=== PATIENT | male | born 1935 | race Caucasian/White ===

== ENCOUNTER 2016-11-01 06:42 | Inpatient (IN) | payer OTHER ==
[2016-11-01 07:04] VITALS: BMI 31.4
[2016-11-01] MEDS ORDERED: SODIUM CHLORIDE 0.9% 1000 ML INFUS.BAG IV PRN (07:17)
[2016-11-01] MEDS ORDERED: ACETAMINOPHEN 325 MG TABLET (FP) ONE (08:03)
[2016-11-01] MEDS ORDERED: ACETAMINOPHEN 500 MG TABLET (FP) PO ONE (08:04)
--- NOTE | 2016-11-01 08:04 | PDOC ---
History of Present Illness - General Chief Complaint: Respiratory Stated Complaint: DIFFICULTY BREATHING Time Seen by Provider: 11/01/16 07:15 - History of Present Illness Initial Comments: 11/01/16 07:57 CHIEF COMPLAINT: SOB HISTORY OF PRESENT ILLNESS: 81 yo M with hx of HTN, NIDDM, s/p 2 cardiac stents (on Plavix) and cholecystectomy, presents to ED with cough, SOB, and fever x 3 days. Patient's daughter is at bedside and states Tmax was yesterday at 101.6F. Daughter reports that patient was seen at [facility] two days ago and sent home with Claritin and Tylenol for ever. Patient has been taking 1000 mg Tylenol 3 times daily for fever. Daughter also reports that patient has had LLQ pain x 3 months as well as "blood in the urine twice" and has seen "three doctors who said everything is ok, but after I insisted he is scheduled to have an ultrasound on the ." No recent travel or sick contacts. PAST MEDICAL HISTORY: Denies past medical history FAMILY HISTORY: Denies SOCIAL HISTORY: Lives at home with daughter. Denies tobacco, alcohol, illicit drug use. SURGICAL HISTORY: Denies ALLERGIES: No known drug allergies REVIEW OF SYSTEMS General/Constitutional: Fever x 3 days. Denies weakness, weight change. HEENT: Denies change in vision. Denies ear pain or discharge. Denies sore throat. Cardiovascular: Denies chest pain or shortness of breath. Respiratory: Productive cough with yellow phlegm x 3 days. Denies wheezing, or hemoptysis. Gastrointestinal: Pain to left lower quadrant x 3 months. Denies nausea, vomiting, diarrhea or constipation. Denies rectal bleeding. Genitourinary: Denies dysuria, frequency, or change in urination. Musculoskeletal: Denies joint or muscle swelling or pain. Denies neck or back pain. Skin and breasts: Denies rash or easy bruising. Neurologic: Denies headache, vertigo, loss of consciousness, or loss of sensation. PHYSICAL EXAM General Appearance: Well-appearing, appropriately dressed. No apparent distress. HEENT: EOMI, PERRLA, normal ENT inspection, normal voice, TMs normal, pharynx normal. No conjunctival pallor. No photophobia, scleral icterus. Neck: Supple. Trachea midline. No tenderness, rigidity, carotid bruit, stridor , lymphadenopathy, or thyromegaly. Respiratory/Chest: Decreased lung sounds to left lower lobe with scattered crackles. No chest tenderness, respiratory distress, accessory muscle use. No rales, stridor. Cardiovascular: RRR. S1, S2. No JVD, murmur, bradycardia, tachycardia. Vascular Pulses: Dorsalis-Pedis (R): 2+, Dorsalis-Pedis (L): 2+ Gastrointestinal/Abdominal: Tenderness to LLQ. Normal bowel sounds. Abdomen soft, non-distended. No organomegaly, pulsatile mass, guarding, hernia, hepatomegaly, splenomegaly. Musculoskeletal/Extremities: Left CVA tenderness. Normal inspection. FROM of all extremities, normal capillary refill. Pelvis Stable. No tenderness to extremities, pedal edema, swelling, erythema or deformity. Integumentary: Appropriate color, dry, warm. No cyanosis, erythema, jaundice or rash Neurologic: intervention manager II-XII intact. Fully oriented, alert. Appropriate mood/affect. Motor strength 5/5. No appreciable EOM palsy, facial droop or sensory deficit. 11/01/16 09:35 Past History - Past Medical History Allergies/Adverse Reactions: Allergies Allergy/AdvReac Type Severity Reaction Status Date / Time No Known Drug Allergies Allergy Verified 11/01/16 07:00 Home Medications: Ambulatory Orders Clopidogrel Bisulfate [Plavix -] 75 mg PO DAILY 09/02/12 Finasteride 5 mg PO HS 09/02/12 Simvastatin [Zocor -] 40 mg PO HS 09/02/12 Cholecalciferol (Vitamin D3) [Vitamin D] 5,000 unit PO BID 01/10/14 Cyanocobalamin [Vitamin B12 -] 10 mcg SL DAILY 01/10/14 Losartan Potassium 100 mg PO DAILY 01/10/14 Sitagliptin Phos/Metformin HCl [Janumet Xr 50-1,000 mg Tablet] 1 each PO BID Ginkgo Biloba [place] Extract [Ginkgo Biloba] 30 mg PO DAILY 03/18/16 Insulin Glargine,Hum.rec.anlog [Lantus (10mL VIAL) -] 20 units SQ HS 03/18/16 Unobtainable 11/01/16 Anemia: No Asthma: No Cancer: No (ANGIOPLASTY WITH STENT) Cardiac Disorders: Yes (CAD) CVA: Yes (2011 - NO RESIDUAL) COPD: No CHF: No Dementia: No Diabetes: Yes (IDDM) GI Disorders: No Disorders: Yes (BPH) HTN: Yes Hypercholesterolemia: No Liver Disease: No Seizures: No Thyroid Disease: No - Surgical History Abdominal Surgery: Yes Appendectomy: No Cardiac Surgery: Yes (ANGIOPLASTY WITH STENT) Cholecystectomy: Yes (GB SX) Lung Surgery: No Neurologic Surgery: No Orthopedic Surgery: Yes (RIGHT KNEE REPLACEMENT) - Immunization History Immunization Up to Date: Yes - Psycho/Social/Smoking Cessation Hx Anxiety: No Suicidal Ideation: No Smoking Status: No Smoking History: Never smoked Have you smoked in the past 12 months: No Number of Cigarettes Smoked Daily: 1,940 Information on smoking cessation initiated: No Hx Alcohol Use: No Drug/Substance Use Hx: No Substance Use Type: None Hx Substance Use Treatment: No *Physical Exam - Vital Signs Last Vital Signs Temp Pulse Resp BP Pulse Ox 100.6 F H 94 H 14 117/56 88 L 11/01/16 07:01 11/01/16 07:01 11/01/16 07:01 11/01/16 07:01 11/01/16 07:01 ED Treatment Course - LABORATORY CBC & Chemistry Diagram: 11/01/16 08:00 11/01/16 08:00 - RADIOLOGY Radiology Studies Ordered: Category Date Time Status CHEST X-RAY PORTABLE* [RAD] Stat Radiology 11/01/16 07:17 Ordered Medical Decision Making - Medical Decision Making 11/01/16 09:35 81 yo M with hx of HTN, NIDDM, s/p 2 cardiac stents (on Plavix) and cholecystectomy, presents to ED with cough, SOB, and fever x 3 days. Patient is febrile to 100.6F on arrival, HR 94. Full sepsis workup ordered. DDx includes but is not limited to pneumonia, UTI, bronchitis, heart failure, GA , diverticulitis. -CBC, CMP, lactic acid, card profile -UA, UCx -EKG, CXR -Motrin 400 mg Labs: Trop 0.36 CXR results: Mild cardiomegaly with suggestion of mild mpulmonary venous congestion. Superimpose interstitial infiltrates cannot be excluded. Concern for new onset heart failure. Cards consult placed at 9:[address]rs[address] Myers. -Echo Patient is clinic patient at [facility], no [facility]. Will admit to hospitalist. *DC/Admit/Observation/Transfer Diagnosis at time of Disposition: New onset of congestive heart failure - Discharge Dispostion Condition at time of disposition: Stable Admit: Yes
[2016-11-01] MEDS ORDERED: IBUPROFEN 400 MG TABLET (FP) PO ONE ×2 (08:10→08:11)
[2016-11-01 08:11] LABS: VENOUS BLOOD GAS HCO3 25.6 meq/L (19-25); VENOUS PH 7.38 (7.32-7.42)
[2016-11-01 08:22] LABS: BASOPHIL 0.2 % (0-2.0); EOSINOPHIL 0.3 % (0-4.5); MCH 31.4 pg (25.7-33.7); MCHC 34.5 g/dl (32.0-35.9); MEAN CELL VOLUME 90.9 fl (80-96); NEUTROPHILS 86.7 % (42.8-82.8); PLATELET COUNT 148 K/MM3 (134-434); RDW 13.9 % (11.9-15.9); WHITE BLOOD COUNT 9.3 K/mm3 (4.0-10.0)
[2016-11-01 08:40] LABS: ALBUMIN 3.1 g/dl (3.4-5.0); ANION GAP 10 (8-16); CALCIUM 8.4 mg/dL (8.5-10.1); CO2 26 mmol/L (21-32); COCKROFT - GAULT 86.32; CREATININE 0.8 mg/dL (0.7-1.3); GLUCOSE,RANDOM 211 mg/dL (74-106); SGOT/AST 22 U/L (15-37); SGPT/ALT 24 U/L (12-78)
[2016-11-01 08:42] LABS: INR 1.26 (0.82-1.09); PROTHROMBIN TIME (PATIENT) 13.9 SEC (9.98-11.88)
[2016-11-01 08:44] LABS: ACTIVATED PTT 36.2 SECONDS (26.9-34.4); ALK PHOS 65 U/L (45-117); BILIRUBIN,TOTAL 0.6 mg/dL (0.2-1.0); TOT PROT 6.2 g/dl (6.4-8.2); TROPONIN I 0.36 ng/ml (0.00-0.05)
[2016-11-01 09:21] LABS: URINE APPEARANCE CLEAR; URINE BILIRUBIN NEGATIVE (NEGATIVE); URINE COLOR YELLOW; URINE GLUCOSE (UA) 1+ (NEGATIVE); URINE KETONE NEGATIVE (NEGATIVE); URINE LEUK ESTERASE NEGATIVE (NEGATIVE); URINE NITRITE NEGATIVE (NEGATIVE); URINE UROBILINOGEN NEGATIVE E.U./dl (0.2-1.0)
--- NOTE | 2016-11-01 09:22 | EKG ---
Test Reason : Blood Pressure : / mmHG Vent. Rate : 093 BPM Atrial Rate : 093 BPM P-R Int : 128 ms QRS Dur : 082 ms QT Int : 354 ms P-R-T Axes : 050 -17 044 degrees QTc Int : 440 ms NORMAL SINUS RHYTHM NORMAL ECG WHEN COMPARED WITH ECG OF 04-MAY-2014 22:10, NO SIGNIFICANT CHANGE WAS FOUND Confirmed by JACEK HINES MD ([id number]) on 11/01/2016 9:22:23 AM Referred By: Confirmed By:JACEK HINES MD
[2016-11-01 09:28] LABS: URINE BLOOD 1+ (NEGATIVE); URINE PROTEIN 2+ (NEGATIVE)
[2016-11-01 09:30] LABS: URINE BACTERIA RARE /hpf (NONE SEEN); URINE MUCUS RARE; URINE RBC 2 /hpf (0-3); URINE WBC 2 /hpf (3-5)
[2016-11-01] MEDS ORDERED: LEVOFLOXACIN 750 MG IVPB 150 ML IVPB ONE ×2 (09:55→11:02)
--- NOTE | 2016-11-01 11:34 | CON.CARD ---
Consult Consult Specialty:: Cardiology - History of Present Illness Chief Complaint: sob History of Present Illness: HISTORY OF PRESENT ILLNESS: 81 yo M with hx of HTN, NIDDM, s/p 2 cardiac stents (on Plavix) and cholecystectomy, presents to ED with cough, SOB, and fever x 3 days. Patient's daughter is at bedside and states Tmax was yesterday at 101.6F. Daughter reports that patient was seen at [facility] two days ago and sent home with Claritin and Tylenol for ever. Patient has been taking 1000 mg Tylenol 3 times daily for fever. Daughter also reports that patient has had LLQ pain x 3 months as well as "blood in the urine twice" and has seen "three doctors who said everything is ok, but after I insisted he is scheduled to have an ultrasound on the ." - History Source History Provided By: Patient, Family Member - Past Medical History THEATER PROJECTIONIST: Yes: CVA Cardio/Vascular: Yes: CAD, CHF, HTN, Hyperlipdemia Endocrine: Yes: Diabetes Mellitus - Past Surgical History Past Surgical History: Yes: Cholecystectomy - Alcohol/Substance Use Hx Alcohol Use: No - Smoking History Smoking history: Never smoked Have you smoked in the past 12 months: No Aproximately how many cigarettes per day: 1,940 - Social History Usual Living Arrangement: With Spouse Home Medications - Allergies Allergies/Adverse Reactions: Allergies Allergy/AdvReac Type Severity Reaction Status Date / Time No Known Drug Allergies Allergy Verified 11/01/16 07:00 - Home Medications Home Medications: Ambulatory Orders Clopidogrel Bisulfate [Plavix -] 75 mg PO DAILY 09/02/12 Finasteride 5 mg PO HS 09/02/12 Simvastatin [Zocor -] 40 mg PO HS 09/02/12 Cholecalciferol (Vitamin D3) [Vitamin D] 5,000 unit PO BID 01/10/14 Cyanocobalamin [Vitamin B12 -] 10 mcg SL DAILY 01/10/14 Losartan Potassium 100 mg PO DAILY 01/10/14 Sitagliptin Phos/Metformin HCl [Janumet Xr 50-1,000 mg Tablet] 1 each PO BID Ginkgo Biloba [place] Extract [Ginkgo Biloba] 30 mg PO DAILY 03/18/16 Insulin Glargine,Hum.rec.anlog [Lantus (10mL VIAL) -] 20 units SQ HS 03/18/16 Unobtainable 11/01/16 Review of Systems - Review of Systems Constitutional: reports: No Symptoms Eyes: reports: No Symptoms HENT: reports: No Symptoms Neck: reports: No Symptoms Cardiovascular: reports: Shortness of Breath Respiratory: reports: SOB, SOB on Exertion Gastrointestinal: reports: No Symptoms Genitourinary: reports: No Symptoms Breasts: reports: No Symptoms Reported Musculoskeletal: reports: No Symptoms Integumentary: reports: No Symptoms Neurological: reports: No Symptoms Endocrine: reports: No Symptoms Hematology/Lymphatic: reports: No Symptoms Psychiatric: reports: No Symptoms Vital Signs: Vital Signs Temperature 100.6 F H 11/01/16 07:01 Pulse Rate 94 H 11/01/16 07:01 Respiratory Rate 14 11/01/16 07:01 Blood Pressure 117/56 11/01/16 07:01 O2 Sat by Pulse Oximetry (%) 98 11/01/16 07:20 Constitutional: Yes: Well Nourished, No Distress, Calm Eyes: Yes: WNL, Conjunctiva Clear, EOM Intact HENT: Yes: WNL, Atraumatic, Normocephalic Neck: Yes: WNL, Supple, Trachea Midline Respiratory: Yes: WNL, Regular, CTA Bilaterally Gastrointestinal: Yes: WNL, Normal Bowel Sounds Renal/: Yes: WNL Cardiovascular: Yes: WNL, Regular Rate and Rhythm Musculoskeletal: Yes: WNL Extremities: Yes: WNL Integumentary: Yes: WNL Neurological: Yes: WNL, Alert, Oriented ...Motor Strength: WNL Psychiatric: Yes: WNL, Alert, Oriented - Other Data Labs, Other Data: INR, PTT INR 1.26 (0.82-1.09) H 11/01/16 08:00 Laboratory Tests 11/01/16 11/01/16 11/01/16 07:55 08:00 08:00 WBC 9.3 RBC 3.77 L Hgb 11.8 Hct 34.3 L MCV 90.9 MCHC 34.5 RDW 13.9 Plt Count 148 D MPV 9.0 Neutrophils % 86.7 H Lymphocytes % 4.2 L D Monocytes % 8.6 Eosinophils % 0.3 Basophils % 0.2 INR 1.26 H PTT (Actin FS) 36.2 H VBG pH 7.38 POC VBG pCO2 44.3 POC VBG pO2 51.7 H Mixed VBG HCO3 25.6 H Sodium Potassium Chloride Carbon Dioxide Anion Gap BUN Creatinine Creat Clearance w eGFR Random Glucose Lactic Acid Calcium Total Bilirubin AST ALT Alkaline Phosphatase Creatine Kinase Troponin I B-Natriuretic Peptide Total Protein Albumin Urine Color Urine Appearance Urine pH Ur Specific [place] Urine Protein Urine Glucose (UA) Urine Ketones Urine Blood Urine Nitrite Urine Bilirubin Urine Urobilinogen Ur Leukocyte Esterase Urine RBC Urine WBC Ur Epithelial Cells Urine Bacteria Urine Mucus Blood Type Antibody Screen 11/01/16 11/01/16 11/01/16 08:00 08:00 08:00 WBC RBC Hgb Hct MCV MCHC RDW Plt Count MPV Neutrophils % Lymphocytes % Monocytes % Eosinophils % Basophils % INR PTT (Actin FS) VBG pH POC VBG pCO2 POC VBG pO2 Mixed VBG HCO3 Sodium 137 Potassium 3.9 Chloride 101 Carbon Dioxide 26 Anion Gap 10 BUN 22 H D Creatinine 0.8 D Creat Clearance w eGFR > 60 Random Glucose 211 H Lactic Acid 1.324 Calcium 8.4 L Total Bilirubin 0.6 D AST 22 D ALT 24 D Alkaline Phosphatase 65 D Creatine Kinase 74 Troponin I 0.36 H B-Natriuretic Peptide 3263.72 H Total Protein 6.2 L Albumin 3.1 L D Urine Color Urine Appearance Urine pH Ur Specific [place] Urine Protein Urine Glucose (UA) Urine Ketones Urine Blood Urine Nitrite Urine Bilirubin Urine Urobilinogen Ur Leukocyte Esterase Urine RBC Urine WBC Ur Epithelial Cells Urine Bacteria Urine Mucus Blood Type O POSITIVE Antibody Screen Negative 11/01/16 08:55 WBC RBC Hgb Hct MCV MCHC RDW Plt Count MPV Neutrophils % Lymphocytes % Monocytes % Eosinophils % Basophils % INR PTT (Actin FS) VBG pH POC VBG pCO2 POC VBG pO2 Mixed VBG HCO3 Sodium Potassium Chloride Carbon Dioxide Anion Gap BUN Creatinine Creat Clearance w eGFR Random Glucose Lactic Acid Calcium Total Bilirubin AST ALT Alkaline Phosphatase Creatine Kinase Troponin I B-Natriuretic Peptide Total Protein Albumin Urine Color Yellow Urine Appearance Clear Urine pH 5.0 Ur Specific [place] 1.023 Urine Protein 2+ H Urine Glucose (UA) 1+ H Urine Ketones Negative Urine Blood 1+ H Urine Nitrite Negative Urine Bilirubin Negative Urine Urobilinogen Negative Ur Leukocyte Esterase Negative Urine RBC 2 Urine WBC 2 Ur Epithelial Cells Rare Urine Bacteria Rare Urine Mucus Rare Blood Type Antibody Screen Imaging - Results Chest X-ray: Image Reviewed (chf) EKG: Image Reviewed (sr no st tw ave changes) Problem List - Problems (1) New onset of congestive heart failure Code(s): I50.9 - HEART FAILURE, UNSPECIFIED (2) CVA (cerebral vascular accident) Code(s): I63.9 - CEREBRAL INFARCTION, UNSPECIFIED (3) Cholecystitis Code(s): K81.9 - CHOLECYSTITIS, UNSPECIFIED (4) Delirium Code(s): R41.0 - DISORIENTATION, UNSPECIFIED (5) Diabetes Code(s): E11.9 - TYPE 2 DIABETES MELLITUS WITHOUT COMPLICATIONS (6) Fever in adult Code(s): R50.9 - FEVER, UNSPECIFIED (7) HTN (hypertension) Code(s): I10 - ESSENTIAL (PRIMARY) HYPERTENSION (9) Hyperlipidemia Code(s): E78.5 - HYPERLIPIDEMIA, UNSPECIFIED (10) Leukocytosis Code(s): D72.829 - ELEVATED WHITE BLOOD CELL COUNT, UNSPECIFIED (11) S/P cholecystectomy Code(s): Z90.49 - ACQUIRED ABSENCE OF OTHER SPECIFIED PARTS OF DIGESTIVE TRACT (12) Type II diabetes mellitus Code(s): E11.9 - TYPE 2 DIABETES MELLITUS WITHOUT COMPLICATIONS Assessment/Plan pna chf ashd pulm htn dm hld plan abx lasix telemetry risk stratification wit stress test when pna/chf resolves keep ldl below 70 cont DAPT will f/u
--- NOTE | 2016-11-01 11:37 | HP ---
CHIEF COMPLAINT: Shortness of breath, cough, fever for 3 days PCP: goes to clinic at [address] HISTORY OF PRESENT ILLNESS: 81 yo M with hx of HTN, NIDDM, s/p 2 cardiac stents (on Plavix) and cholecystectomy, presents to ED with cough, SOB, and fever x 3 days. Patient's daughter is at bedside and states Tmax was yesterday at 101.6F. Daughter reports that patient was seen at [place] two days ago and sent home with Claritin and Tylenol for ever. Patient has been taking 1000 mg Tylenol 3 times daily for fever. Daughter also reports that patient has had LLQ pain x 3 months as well as "blood in the urine twice" and has seen "three doctors who said everything is ok, but after I insisted he is scheduled to have an ultrasound on the ." ER course was notable for: (1) CXR with ? infiltrate vs vascular congestion (2) hypoxia reversed with oxygen Recent Travel: none PAST MEDICAL HISTORY: HTN, NIDDM, cardiac stents x 2 on plavix, PAST SURGICAL HISTORY: cholecystectomy Social History: Smoking:denies Alcohol: denies Drugs: denies Family History: Allergies No Known Drug Allergies Allergy (Verified 11/01/16 07:00) HOME MEDICATIONS: Home Medications Medication Instructions Recorded Clopidogrel Bisulfate [Plavix -] 75 mg PO DAILY 09/02/12 Finasteride 5 mg PO HS 09/02/12 Simvastatin [Zocor -] 40 mg PO HS 09/02/12 Cholecalciferol (Vitamin D3) 5,000 unit PO BID 01/10/14 [Vitamin D] Cyanocobalamin [Vitamin B12 -] 10 mcg SL DAILY 01/10/14 Losartan Potassium 100 mg PO DAILY 01/10/14 Sitagliptin Phos/Metformin HCl 1 each PO BID 01/10/14 [Janumet Xr 50-1,000 mg Tablet] Ginkgo Biloba [place] Extract [Ginkgo 30 mg PO DAILY 03/18/16 Biloba] Insulin Glargine,Hum.rec.anlog 20 units SQ HS 03/18/16 [Lantus (10mL VIAL) -] Unobtainable 11/01/16 REVIEW OF SYSTEMS CONSTITUTIONAL: Absent: diaphoresis, generalized weakness, malaise, loss of appetite, weight change with + fever on and off for three days HEENT: Absent: rhinorrhea, nasal congestion, throat pain, throat swelling, difficulty swallowing, mouth swelling, ear pain, eye pain, visual changes CARDIOVASCULAR: Absent: chest pain, syncope, palpitations, irregular heart rate, lightheadedness , peripheral edema RESPIRATORY: Absent: orthopnea, wheezing, stridor, hemoptysis with + cough, shortness of breath, dyspnea with exertion GASTROINTESTINAL: Absent: abdominal pain, abdominal distension, nausea, vomiting, diarrhea, constipation, melena, hematochezia GENITOURINARY: Absent: dysuria, frequency, urgency, hesitancy, hematuria, flank pain, genital pain MUSCULOSKELETAL: Absent: myalgia, arthralgia, joint swelling, back pain, neck pain SKIN: Absent: rash, itching, pallor HEMATOLOGIC/IMMUNOLOGIC: Absent: easy bleeding, easy bruising, lymphadenopathy, frequent infections ENDOCRINE: Absent: unexplained weight gain, unexplained weight loss, heat intolerance, cold intolerance NEUROLOGIC: Absent: headache, focal weakness or paresthesias, dizziness, unsteady gait, seizure, mental status changes, bladder or bowel incontinence PSYCHIATRIC: Absent: anxiety, depression, suicidal or homicidal ideation, hallucinations. PHYSICAL EXAMINATION Vital Signs - 24 hr 11/01/16 11/01/16 07:01 07:20 Temperature 100.6 F H Pulse Rate 94 H Respiratory 14 Rate Blood Pressure 117/56 O2 Sat by Pulse 88 L 98 Oximetry (%) GENERAL: Awake, alert, and fully oriented speaking English ~ daughter to interpret, in no acute distress. HEAD: Normal with no signs of trauma. NECK: Normal range of motion, supple without lymphadenopathy, JVD, or masses. LUNGS: Breath sounds equal, with diminished sounds exclusively to the left lower lobe, No wheezes, and no crackles. No accessory muscle use. Can complete full sentence. HEART: Regular rate and rhythm, normal S1 and S2 without murmur, rub or gallop. ABDOMEN: Soft, nontender, not distended, normoactive bowel sounds, no guarding, no rebound, no masses. No hepatomegaly or splenomegaly. MUSCULOSKELETAL: Normal range of motion at all joints. No bony deformities or tenderness. No CVA tenderness. UPPER EXTREMITIES: 2+ pulses, warm, well-perfused. No cyanosis. No clubbing. No peripheral edema. LOWER EXTREMITIES: 2+ pulses, warm, well-perfused. No calf tenderness. No peripheral edema. NEUROLOGICAL: Cranial nerves II-XII intact. Normal speech. Normal gait. PSYCHIATRIC: Cooperative. Good eye contact. Appropriate mood and affect. SKIN: Warm, dry, normal turgor, no rashes or lesions noted, normal capillary refill. Laboratory Results - last 24 hr 11/01/16 11/01/16 11/01/16 07:55 08:00 08:00 WBC 9.3 RBC 3.77 L Hgb 11.8 Hct 34.3 L MCV 90.9 MCHC 34.5 RDW 13.9 Plt Count 148 D MPV 9.0 Neutrophils % 86.7 H Lymphocytes % 4.2 L D Monocytes % 8.6 Eosinophils % 0.3 Basophils % 0.2 INR 1.26 H PTT (Actin FS) 36.2 H VBG pH 7.38 POC VBG pCO2 44.3 POC VBG pO2 51.7 H Mixed VBG HCO3 25.6 H Sodium Potassium Chloride Carbon Dioxide Anion Gap BUN Creatinine Creat Clearance w eGFR Random Glucose Lactic Acid Calcium Total Bilirubin AST ALT Alkaline Phosphatase Creatine Kinase Troponin I B-Natriuretic Peptide Total Protein Albumin Urine Color Urine Appearance Urine pH Ur Specific [place] Urine Protein Urine Glucose (UA) Urine Ketones Urine Blood Urine Nitrite Urine Bilirubin Urine Urobilinogen Ur Leukocyte Esterase Urine RBC Urine WBC Ur Epithelial Cells Urine Bacteria Urine Mucus Blood Type Antibody Screen 11/01/16 11/01/16 11/01/16 08:00 08:00 08:00 WBC RBC Hgb Hct MCV MCHC RDW Plt Count MPV Neutrophils % Lymphocytes % Monocytes % Eosinophils % Basophils % INR PTT (Actin FS) VBG pH POC VBG pCO2 POC VBG pO2 Mixed VBG HCO3 Sodium 137 Potassium 3.9 Chloride 101 Carbon Dioxide 26 Anion Gap 10 BUN 22 H D Creatinine 0.8 D Creat Clearance w eGFR > 60 Random Glucose 211 H Lactic Acid 1.324 Calcium 8.4 L Total Bilirubin 0.6 D AST 22 D ALT 24 D Alkaline Phosphatase 65 D Creatine Kinase 74 Troponin I 0.36 H B-Natriuretic Peptide 3263.72 H Total Protein 6.2 L Albumin 3.1 L D Urine Color Urine Appearance Urine pH Ur Specific [place] Urine Protein Urine Glucose (UA) Urine Ketones Urine Blood Urine Nitrite Urine Bilirubin Urine Urobilinogen Ur Leukocyte Esterase Urine RBC Urine WBC Ur Epithelial Cells Urine Bacteria Urine Mucus Blood Type O POSITIVE Antibody Screen Negative 11/01/16 08:55 WBC RBC Hgb Hct MCV MCHC RDW Plt Count MPV Neutrophils % Lymphocytes % Monocytes % Eosinophils % Basophils % INR PTT (Actin FS) VBG pH POC VBG pCO2 POC VBG pO2 Mixed VBG HCO3 Sodium Potassium Chloride Carbon Dioxide Anion Gap BUN Creatinine Creat Clearance w eGFR Random Glucose Lactic Acid Calcium Total Bilirubin AST ALT Alkaline Phosphatase Creatine Kinase Troponin I B-Natriuretic Peptide Total Protein Albumin Urine Color Yellow Urine Appearance Clear Urine pH 5.0 Ur Specific [place] 1.023 Urine Protein 2+ H Urine Glucose (UA) 1+ H Urine Ketones Negative Urine Blood 1+ H Urine Nitrite Negative Urine Bilirubin Negative Urine Urobilinogen Negative Ur Leukocyte Esterase Negative Urine RBC 2 Urine WBC 2 Ur Epithelial Cells Rare Urine Bacteria Rare Urine Mucus Rare Blood Type Antibody Screen ASSESSMENT/PLAN: This 81 yr old male with possible Pulmonary vascular congestion vs infiltrate after presenting with SOB, fever and + productive cough 1. Pulmonary vascular congestion -cardiology consult, Dr. Myers -Follow up Echo ordered in ER -strict I and O -daily weights 2. Infiltrate -Antibiotic started Levaquin -tylenol PRN for fever -incentive spirometer -oxygen to wean to sat of greater then 90% 3. GI ppx 4. diabetes -continue home meds -fingerstick ac and hs 5. hematuria -follow up on urine culture Visit type - Emergency Visit Emergency Visit: Yes Care time: The patient presented to the Emergency Department on the above date and was hospitalized for further evaluation of their emergent condition. - New Patient This patient is new to me today: Yes Date on this admission: 11/01/16 - Critical Care Critical Care patient: No
[2016-11-01 15:20] LABS: TROPONIN I 0.23 ng/ml (0.00-0.05)
[2016-11-01] MEDS: sitaGLIPtin PHOSPHATE 50 MG TABLET PO SCH (17:29)
[2016-11-01] MEDS: INSULIN DETEMIR 100 UNITS/ML MDV SQ SCH (21:53)
[2016-11-01] MEDS: FINASTERIDE 5 MG TABLET (FP) PO SCH (21:53)
[2016-11-01] MEDS: ATORVASTATIN CA 20 MG TABLET (FP) PO SCH (21:53)
[2016-11-01] MEDS ORDERED: [UNRECOGNIZED DRUG - OTHER] PO SCH (22:00)
[2016-11-01] MEDS ORDERED: CHOLECALCIFEROL U PO SCH (22:00)
[2016-11-01] MEDS ORDERED: PATIENT'S OWN MEDICATION (NON-FORMULARY) (Sitagliptin Phos/Metformin Hcl [Janumet Xr 50-1, PO SCH (22:00)
[2016-11-02] MEDS: ACETAMINOPHEN 500 MG TABLET (FP) PO PRN ×2 (05:40→15:21)
[2016-11-02] MEDS: sitaGLIPtin PHOSPHATE 50 MG TABLET PO SCH ×2 (06:44→17:50)
--- NOTE | 2016-11-02 08:03 | PN ---
Physical Exam: SUBJECTIVE: Patient seen and examined Patient is a 81yo male presented to ED. with cough and SOB, as further questioning the patient ,stated that he was having cough, muscle ache, shortness of breath for 4 days and decided to come to the hospital for further evaluation. OBJECTIVE: Vital Signs Temperature 98.3 F 11/02/16 06:00 Pulse Rate 70 11/02/16 06:00 Respiratory Rate 18 11/02/16 06:00 Blood Pressure 130/65 11/02/16 06:00 O2 Sat by Pulse Oximetry (%) 99 11/01/16 21:00 GENERAL: The patient is awake, alert, and fully oriented, in no acute distress. HEAD: Normal with no signs of trauma. EYES: PERRL, extraocular movements intact, sclera anicteric, conjunctiva clear. ENT: Ears normal, oropharynx clear without exudates, moist mucous membranes. NECK: Trachea midline, full range of motion, supple. LUNGS: decreased BS BL, no wheezes, no crackles, no accessory muscle use. HEART: Regular rate and rhythm, S1, S2 positive, without murmur, rub or gallop. ABDOMEN: Soft, nontender, nondistended, normoactive bowel sounds, no guarding, no rebound, no masses are appreciated . EXTREMITIES: 2+ pulses, warm, well-perfused, no edema. NEUROLOGICAL: Cranial nerves II through XII grossly intact. Normal speech, gait not observed. PSYCH: Normal mood, normal affect. SKIN: Warm, dry, normal turgor, no rashes or lesions noted CBCD WBC 8.1 K/mm3 (4.0-10.0) 11/02/16 06:05 RBC 3.73 M/mm3 (4.00-5.60) L 11/02/16 06:05 Hgb 11.4 GM/dL (11.7-16.9) L 11/02/16 06:05 Hct 34.1 % (35.4-49) L 11/02/16 06:05 MCV 91.2 fl (80-96) 11/02/16 06:05 MCHC 33.6 g/dl (32.0-35.9) 11/02/16 06:05 RDW 13.6 % (11.9-15.9) 11/02/16 06:05 Plt Count 168 K/MM3 (134-434) 11/02/16 06:05 MPV 9.2 fl (7.5-11.1) 11/02/16 06:05 CMP Sodium 137 mmol/L (136-145) 11/01/16 08:00 Potassium 3.9 mmol/L (3.5-5.1) 11/01/16 08:00 Chloride 101 mmol/L (98-107) 11/01/16 08:00 Carbon Dioxide 26 mmol/L (21-32) 11/01/16 08:00 Anion Gap 10 (8-16) 11/01/16 08:00 BUN 22 mg/dL (7-18) H D 11/01/16 08:00 Creatinine 0.8 mg/dL (0.7-1.3) D 11/01/16 08:00 Creat Clearance w eGFR > 60 (>60) 11/01/16 08:00 Random Glucose 211 mg/dL (74-106) H 11/01/16 08:00 Calcium 8.4 mg/dL (8.5-10.1) L 11/01/16 08:00 Total Bilirubin 0.6 mg/dL (0.2-1.0) D 11/01/16 08:00 AST 22 U/L (15-37) D 11/01/16 08:00 ALT 24 U/L (12-78) D 11/01/16 08:00 Alkaline Phosphatase 65 U/L (45-117) D 11/01/16 08:00 Total Protein 6.2 g/dl (6.4-8.2) L 11/01/16 08:00 Albumin 3.1 g/dl (3.4-5.0) L D 11/01/16 08:00 CARDIAC ENZYMES Creatine Kinase 71 IU/L (39-308) 11/01/16 14:45 Troponin I 0.23 ng/ml (0.00-0.05) H D 11/01/16 14:45 Laboratory Results - last 24 hr 11/01/16 11/01/16 11/01/16 14:45 15:53 21:51 POC Glucometer 129 202 Creatine Kinase 71 Troponin I 0.23 H D 11/02/16 05:27 POC Glucometer 99 Creatine Kinase Troponin I Active Medications Generic Name Dose Route Start Last Admin Trade Name Freq PRN Reason Stop Dose Admin Acetaminophen 1,000 mg 11/01/16 10:02 11/02/16 05:40 Tylenol - PO 1,000 mg Q6H PRN Administration FEVER OR PAIN Atorvastatin Calcium 20 mg 11/01/16 22:00 11/01/16 21:53 Lipitor - PO 20 mg HS SAMUEL Administration Clopidogrel Bisulfate 75 mg 11/02/16 10:00 Plavix - PO DAILY SAMUEL Cyanocobalamin 10 mcg 11/02/16 10:00 Vitamin B12 - PO DAILY SAMUEL Finasteride 5 mg 11/01/16 22:00 11/01/16 21:53 Proscar - PO 5 mg HS SAMUEL Administration Insulin Detemir 20 units 11/01/16 22:00 11/01/16 21:53 Levemir Vial SQ 16 units HS SAMUEL Administration Losartan Potassium 100 mg 11/02/16 10:00 Cozaar - PO DAILY SAMUEL Metformin HCl 1,000 mg 11/01/16 16:30 11/02/16 06:44 Glucophage Xr - PO 1,000 mg BIDAC SAMUEL Administration Non-Formulary Medication 5,000 unit 11/01/16 22:00 Cholecalciferol (Vitamin D3) [Vitamin D] PO BID SAMUEL Sitagliptin Phosphate 50 mg 11/01/16 16:30 11/02/16 06:44 Januvia - PO 50 mg BIDAC SAMUEL Administration Sodium Chloride 1,000 ml 11/01/16 07:17 11/01/16 08:05 Normal Saline - IV 1,000 ml Q20M PRN Administration MAP<65mm Hg OR SBP <90 Home Medications Medication Instructions Recorded Clopidogrel Bisulfate [Plavix -] 75 mg PO DAILY 09/02/12 Finasteride 5 mg PO HS 09/02/12 Cholecalciferol (Vitamin D3) 5,000 unit PO BID 01/10/14 [Vitamin D] Cyanocobalamin [Vitamin B12 -] 10 mcg SL DAILY 01/10/14 Losartan Potassium 100 mg PO DAILY 01/10/14 Sitagliptin Phos/Metformin HCl 1 each PO BID 01/10/14 [Janumet Xr 50-1,000 mg Tablet] Ginkgo Biloba [place] Extract [Ginkgo 30 mg PO DAILY 03/18/16 Biloba] Insulin Glargine,Hum.rec.anlog 15 units SQ HS 03/18/16 [Lantus (10mL VIAL) -] Unobtainable 11/01/16 Urine Test Results Urine Color Yellow 11/01/16 08:55 Urine Appearance Clear 11/01/16 08:55 Urine pH 5.0 (5.0-8.0) 11/01/16 08:55 Ur Specific [place] 1.023 (1.001-1.035) 11/01/16 08:55 Urine Protein 2+ (NEGATIVE) H 11/01/16 08:55 Urine Glucose (UA) 1+ (NEGATIVE) H 11/01/16 08:55 Urine Ketones Negative (NEGATIVE) 11/01/16 08:55 Urine Blood 1+ (NEGATIVE) H 11/01/16 08:55 Urine Nitrite Negative (NEGATIVE) 11/01/16 08:55 Urine Bilirubin Negative (NEGATIVE) 11/01/16 08:55 Ur Leukocyte Esterase Negative (NEGATIVE) 11/01/16 08:55 Urine RBC 2 /hpf (0-3) 11/01/16 08:55 Urine WBC 2 /hpf (3-5) 11/01/16 08:55 Ur Epithelial Cells Rare /hpf (FEW) 11/01/16 08:55 Urine Bacteria Rare /hpf (NONE SEEN) 11/01/16 08:55 Urine Mucus Rare 11/01/16 08:55 ECHO: EJF 65%; RVSP:40-50 , mild concentric left ventricular hypertrophy, Mild MR, mild TR EKG: NSR, rate 93 CXR: positive for infiltrate ,positive for pulmonary congestion ASSESSMENT/PLAN: Patient is an 81 yr old male presented to Ed.with SOB, fever and + productive cough. # Pneumonia BL can't be ruled out since presented with SOB/Fever and productive cough, ordered Influenza A and B, patient is positive for Influenza B, isoaltion order is placed; droplet isolation , Tamiflu is iniated 75mg po bid .s /p Rocephin/Zithromax in ED . tylenol PRN for fever, incentive spirometer; keep o2 > 90% # Acute exacerbation of CHF ; CSA is ruled out since patient has 2 sets of negative troponins , Patient is seen by covering for [facility] ; ECHo as above , Is and Os ,daily weights, BNP 3263 trops.0.36-->0.23-->0.08 now. Lasix 20mg IV Bid , on Arb continue ,on plavix , on lipitor # T2DM fingerstick ac and hs with coverage, hold metformin for now , continue 20u levemir # Hx of BPH hematuria WITH PROTEINURIA 2 PLUS :F/U urine culture; ON arb CONTINUE, continue proscar DVT Px: SCDs since has hematuria will not give heparin POsitive for Influenza B positive Visit type - Emergency Visit Emergency Visit: Yes ED Registration Date: 11/01/16 Care time: The patient presented to the Emergency Department on the above date and was hospitalized for further evaluation of their emergent condition. - New Patient This patient is new to me today: Yes Date on this admission: 11/02/16 - Critical Care Critical Care patient: No
[2016-11-02 08:14] LABS: BASOPHIL 0.3 % (0-2.0); EOSINOPHIL 1.9 % (0-4.5); MCH 30.6 pg (25.7-33.7); MCHC 33.6 g/dl (32.0-35.9); MEAN CELL VOLUME 91.2 fl (80-96); MEAN PLT VOLUME 9.2 fl (7.5-11.1); NEUTROPHILS 70.2 % (42.8-82.8); PLATELET COUNT 168 K/MM3 (134-434); RDW 13.6 % (11.9-15.9); WHITE BLOOD COUNT 8.1 K/mm3 (4.0-10.0)
[2016-11-02 08:35] LABS: INR 1.26 (0.82-1.09); PROTHROMBIN TIME (PATIENT) 13.9 SEC (9.98-11.88)
[2016-11-02 08:36] LABS: ALBUMIN 2.8 g/dl (3.4-5.0); ANION GAP 6 (8-16); CALCIUM 8.7 mg/dL (8.5-10.1); CO2 32 mmol/L (21-32); COCKROFT - GAULT 97.61; CREATININE 0.7 mg/dL (0.7-1.3); GLUCOSE,RANDOM 80 mg/dL (74-106)
[2016-11-02 08:39] LABS: ALK PHOS 56 U/L (45-117); BILIRUBIN,TOTAL 0.5 mg/dL (0.2-1.0); SGOT/AST 19 U/L (15-37); SGPT/ALT 20 U/L (12-78); TOT PROT 5.8 g/dl (6.4-8.2); TROPONIN I 0.08 ng/ml (0.00-0.05)
[2016-11-02] MEDS: CLOPIDOGREL BISULFATE 75 MG TABLET (FP) PO SCH (09:37)
[2016-11-02] MEDS: CHOLECALCIFEROL (VITAMIN D3) 1,000 UNIT TABLET (FP) PO SCH (09:37)
[2016-11-02] MEDS: CEFTRIAXONE 50 ML IVPB SCH (09:38)
[2016-11-02] MEDS: LOSARTAN POTASSIUM 50 MG TABLET (FP) PO SCH (09:38)
--- NOTE | 2016-11-02 10:54 | PN ---
Progress Note, Physician History of Present Illness: seen and examined this am in nad. states he is feeling better. still has chest discomfort and sob but improved. no overnight events. no new complaints. - Current Medication List Current Medications: Active Medications Acetaminophen (Tylenol -) 1,000 mg PO Q6H PRN PRN Reason: FEVER OR PAIN Last Admin: 11/02/16 05:40 Dose: 1,000 mg Atorvastatin Calcium (Lipitor -) 20 mg PO HS [facility] Last Admin: 11/01/16 21:53 Dose: 20 mg Cholecalciferol (Vitamin D3 -) 5,000 unit PO DAILY [facility] Last Admin: 11/02/16 09:37 Dose: 5,000 unit Clopidogrel Bisulfate (Plavix -) 75 mg PO DAILY [facility] Last Admin: 11/02/16 09:37 Dose: 75 mg Cyanocobalamin (Vitamin B12 -) 10 mcg PO DAILY [facility] Finasteride (Proscar -) 5 mg PO HS [facility] Last Admin: 11/01/16 21:53 Dose: 5 mg Furosemide (Lasix Injection -) 20 mg IVPUSH BID@0600,1400 [facility] Ceftriaxone Sodium (Rocephin 1gm Ivpb (Pre-Docked)) 50 mls @ 100 mls/hr IVPB DAILY [facility] Last Admin: 11/02/16 09:38 Dose: 100 mls/hr Azithromycin 250 mg/ Dextrose 250 mls @ 250 mls/hr IVPB DAILY [facility] Insulin Detemir (Levemir Vial) 20 units SQ HS [facility] Last Admin: 11/01/16 21:53 Dose: 16 units Losartan Potassium (Cozaar -) 100 mg PO DAILY [facility] Last Admin: 11/02/16 09:38 Dose: 100 mg Sitagliptin Phosphate (Januvia -) 50 mg PO BIDAC [facility] Last Admin: 11/02/16 06:44 Dose: 50 mg Sodium Chloride (Normal Saline -) 1,000 ml IV Q20M PRN PRN Reason: MAP<65mm Hg OR SBP <90 Last Admin: 11/01/16 08:05 Dose: 1,000 ml - Objective Vital Signs: Vital Signs Temperature 98.2 F 11/02/16 08:00 Pulse Rate 74 11/02/16 08:00 Respiratory Rate 18 11/02/16 08:00 Blood Pressure 156/70 11/02/16 08:00 O2 Sat by Pulse Oximetry (%) 99 11/01/16 21:00 Constitutional: Yes: No Distress, Calm, Obese Eyes: Yes: Conjunctiva Clear, EOM Intact, PERRL HENT: Yes: Atraumatic, Normocephalic Neck: Yes: Supple, Trachea Midline Cardiovascular: Yes: Regular Rate and Rhythm, S1, S2. No: Bradycardia, Tachycardia, Pulse Irregular, Bruit, JVD, Gallop, Murmur, Rub, S3, S4, Varicosities Respiratory: Yes: Regular, Rhonchi, Wheezes. No: Rales, SOB Gastrointestinal: Yes: Normal Bowel Sounds, Soft. No: Distention, Tenderness Musculoskeletal: Yes: WNL Extremities: Yes: WNL Edema: Yes Edema: LLE: Trace, RLE: Trace Peripheral Pulses WNL: Yes Peripheral Pulses: Left Doralis Pedis: 2+, Right Dorsalis Pedis: 2+ Integumentary: Yes: WNL Neurological: Yes: Alert, Oriented Psychiatric: Yes: Alert, Oriented Labs: CBC, BMP 11/02/16 06:05 11/02/16 06:05 INR, PTT INR 1.26 (0.82-1.09) H 11/02/16 06:05 - ....Imaging Chest X-ray: Report Reviewed, Image Reviewed EKG: Report Reviewed, Image Reviewed Other: Report Reviewed, Image Reviewed (tele-nsr, pvcs) Assessment/Plan 81 year old man h/o HTN, DMII, CAD with 2 prior stents admitted with sob, chest discomfort, cough, and fever. SOB-multifactorial, acute on chronic diastolic CHF, possible PNA, pulm HTN -slightly improved -echo showed normal LV systolic function, no sig valvular abnl, mild PAH -cont diuresis, would uptitrate Lasix to achieve a negative fluid balance -I/Os not recorded, would monitor strict I/Os -receiving Abx for possible PNA Chest pain-h/o CAD with stents, slightly elevated troponin with normal CK level , unlikely type I MD -cont Plavix and Lipitor -clarify if he was on ASA as it is not currently ordered -plan for ischemic work up with stress test once improves from a pulmonary standpoint HTN-above goal at times -cont current medical regimen for now HLD -cont statin
[2016-11-02] MEDS: AZITHROMYCIN IVPB 250 MG in DEXTROSE 5%-WATER - 250 ML IVPB SCH (11:01)
[2016-11-02] MEDS: FUROSEMIDE 40 MG/4 ML INJECTABLE VIAL IVPUSH SCH (14:42)
[2016-11-02] MEDS: OSELTAMIVIR PHOSPHATE 75 MG CAPSULE PO SCH ×2 (15:17→22:53)
--- NOTE | 2016-11-02 18:13 | EKG ---
Test Reason : Blood Pressure : / mmHG Vent. Rate : 069 BPM Atrial Rate : 069 BPM P-R Int : 134 ms QRS Dur : 080 ms QT Int : 404 ms P-R-T Axes : 044 -16 033 degrees QTc Int : 432 ms SINUS RHYTHM WITH PREMATURE ATRIAL COMPLEXES OTHERWISE NORMAL ECG WHEN COMPARED WITH ECG OF 01-NOV-2016 06:54, PREMATURE ATRIAL COMPLEXES ARE NOW PRESENT CLINICAL CORRELATION IS RECOMMENDED Confirmed by ISAURA RODRIGUEZ, ANA ([id number] on 11/02/2016 6:13:35 PM Referred By: Angelito LINCOLN Confirmed By:ANA DELAROSA MD
[2016-11-02] MEDS: amLODIPine BESYLATE 10 MG TABLET (FP) PO SCH (19:40)
[2016-11-02] MEDS: ATORVASTATIN CA 20 MG TABLET (FP) PO SCH (22:53)
[2016-11-02] MEDS: INSULIN DETEMIR 100 UNITS/ML MDV SQ SCH (22:53)
[2016-11-02] MEDS: FINASTERIDE 5 MG TABLET (FP) PO SCH (22:53)
[2016-11-03] MEDS: sitaGLIPtin PHOSPHATE 50 MG TABLET PO SCH ×2 (06:48→16:51)
[2016-11-03] MEDS: FUROSEMIDE 40 MG/4 ML INJECTABLE VIAL IVPUSH SCH ×2 (06:52→13:51)
[2016-11-03] MEDS ORDERED: PT OWN MED DRAWER 7, Y5N ONE (09:15)
--- NOTE | 2016-11-03 09:19 | PN ---
Progress Note, Physician - Current Medication List Current Medications: Active Medications Acetaminophen (Tylenol -) 1,000 mg PO Q6H PRN PRN Reason: FEVER OR PAIN Last Admin: 11/02/16 15:21 Dose: 1,000 mg Amlodipine Besylate (Norvasc -) 10 mg PO DAILY [facility] Last Admin: 11/02/16 19:40 Dose: 10 mg Atorvastatin Calcium (Lipitor -) 20 mg PO HS [facility] Last Admin: 11/02/16 22:53 Dose: 20 mg Cholecalciferol (Vitamin D3 -) 5,000 unit PO DAILY [facility] Last Admin: 11/02/16 09:37 Dose: 5,000 unit Clopidogrel Bisulfate (Plavix -) 75 mg PO DAILY [facility] Last Admin: 11/02/16 09:37 Dose: 75 mg Cyanocobalamin (Vitamin B12 -) 10 mcg PO DAILY [facility] Finasteride (Proscar -) 5 mg PO HS [facility] Last Admin: 11/02/16 22:53 Dose: 5 mg Furosemide (Lasix Injection -) 20 mg IVPUSH BID@0600,1400 [facility] Last Admin: 11/03/16 06:52 Dose: 20 mg Ceftriaxone Sodium (Rocephin 1gm Ivpb (Pre-Docked)) 50 mls @ 100 mls/hr IVPB DAILY [facility] Last Admin: 11/02/16 09:38 Dose: 100 mls/hr Azithromycin 250 mg/ Dextrose 250 mls @ 250 mls/hr IVPB DAILY [facility] Last Admin: 11/02/16 11:01 Dose: 250 mls/hr Insulin Detemir (Levemir Vial) 20 units SQ HS [facility] Last Admin: 11/02/16 22:53 Dose: 16 units Losartan Potassium (Cozaar -) 100 mg PO DAILY [facility] Last Admin: 11/02/16 09:38 Dose: 100 mg Oseltamivir Phosphate (Tamiflu -) 75 mg PO BID [facility] Stop: 11/07/16 14:14 Last Admin: 11/02/16 22:53 Dose: 75 mg Sitagliptin Phosphate (Januvia -) 50 mg PO BIDAC [facility] Last Admin: 11/03/16 06:48 Dose: 50 mg Sodium Chloride (Normal Saline -) 1,000 ml IV Q20M PRN PRN Reason: MAP<65mm Hg OR SBP <90 Last Admin: 11/01/16 08:05 Dose: 1,000 ml - Objective Vital Signs: Vital Signs Temperature 98.5 F 11/03/16 08:53 Pulse Rate 74 11/03/16 08:53 Respiratory Rate 18 11/03/16 08:56 Blood Pressure 149/74 11/03/16 08:53 O2 Sat by Pulse Oximetry (%) 98 11/03/16 08:56 Labs: CBC, BMP 11/02/16 06:05 11/02/16 06:05 INR, PTT INR 1.26 (0.82-1.09) H 11/02/16 06:05 Assessment/Plan 81 year old man h/o HTN, DMII, CAD with 2 prior stents admitted with sob, chest discomfort, cough, and fever. SOB-multifactorial, found to have influenza B positive yesterday, mild acute on chronic diastolic CHF, possible PNA, pulm HTN -improving -echo showed normal LV systolic function, no sig valvular abnl, mild PAH -cont current diuretics -I/Os not recorded, would monitor strict I/Os -receiving Abx for possible PNA -now on tamiflu for influenza Chest pain-h/o CAD with stents, slightly elevated troponin with normal CK level , unlikely type I MA -troponin trended down -cont Plavix and Lipitor -clarify if he was on ASA as it is not currently ordered -plan for ischemic work up with stress test once improves from a pulmonary standpoint HTN-above goal at times -cont current medical regimen for now HLD -cont statin
[2016-11-03] MEDS: amLODIPine BESYLATE 10 MG TABLET (FP) PO SCH (09:26)
[2016-11-03] MEDS: OSELTAMIVIR PHOSPHATE 75 MG CAPSULE PO SCH ×2 (09:26→22:08)
[2016-11-03] MEDS: LOSARTAN POTASSIUM 50 MG TABLET (FP) PO SCH (09:27)
[2016-11-03] MEDS: CEFTRIAXONE 50 ML IVPB SCH (09:27)
[2016-11-03] MEDS: CHOLECALCIFEROL (VITAMIN D3) 1,000 UNIT TABLET (FP) PO SCH (09:36)
[2016-11-03] MEDS: CLOPIDOGREL BISULFATE 75 MG TABLET (FP) PO SCH (09:36)
[2016-11-03] MEDS: AZITHROMYCIN IVPB 250 MG in DEXTROSE 5%-WATER - 250 ML IVPB SCH (10:24)
--- NOTE | 2016-11-03 16:39 | PN ---
Progress Note (short form) - Note Progress Note: Patient is feeling better than yesterday, still coughing and with shortness of breath. Vital Signs Temperature 98.2 F 11/03/16 14:55 Pulse Rate 71 11/03/16 14:55 Respiratory Rate 18 11/03/16 14:55 Blood Pressure 149/65 11/03/16 14:55 O2 Sat by Pulse Oximetry (%) 98 11/03/16 08:56 GENERAL: The patient is awake, alert, and fully oriented, in no acute distress. HEAD: Normal with no signs of trauma. EYES: PERRL, extraocular movements intact, sclera anicteric, conjunctiva clear. ENT: Ears normal, oropharynx clear without exudates, moist mucous membranes. NECK: Trachea midline, full range of motion, supple. LUNGS: decreased BS BL, no wheezes, no crackles, no accessory muscle use. HEART: Regular rate and rhythm, S1, S2 positive, without murmur, rub or gallop. ABDOMEN: Soft, large abdomen, nontender, nondistended, normoactive bowel sounds , no guarding, no rebound, no masses are appreciated . EXTREMITIES: 2+ pulses, warm, well-perfused, no edema. NEUROLOGICAL: Cranial nerves II through XII grossly intact. Normal speech. PSYCH: Normal mood, normal affect. SKIN: Warm, dry, normal turgor, no rashes or lesions noted CBCD WBC 8.1 K/mm3 (4.0-10.0) 11/02/16 06:05 RBC 3.73 M/mm3 (4.00-5.60) L 11/02/16 06:05 Hgb 11.4 GM/dL (11.7-16.9) L 11/02/16 06:05 Hct 34.1 % (35.4-49) L 11/02/16 06:05 MCV 91.2 fl (80-96) 11/02/16 06:05 MCHC 33.6 g/dl (32.0-35.9) 11/02/16 06:05 RDW 13.6 % (11.9-15.9) 11/02/16 06:05 Plt Count 168 K/MM3 (134-434) 11/02/16 06:05 MPV 9.2 fl (7.5-11.1) 11/02/16 06:05 CMP Sodium 140 mmol/L (136-145) 11/02/16 06:05 Potassium 4.2 mmol/L (3.5-5.1) 11/02/16 06:05 Chloride 102 mmol/L (98-107) 11/02/16 06:05 Carbon Dioxide 32 mmol/L (21-32) D 11/02/16 06:05 Anion Gap 6 (8-16) L 11/02/16 06:05 BUN 12 mg/dL (7-18) D 11/02/16 06:05 Creatinine 0.7 mg/dL (0.7-1.3) 11/02/16 06:05 Creat Clearance w eGFR > 60 (>60) 11/02/16 06:05 Random Glucose 80 mg/dL (74-106) D 11/02/16 06:05 Calcium 8.7 mg/dL (8.5-10.1) 11/02/16 06:05 Total Bilirubin 0.5 mg/dL (0.2-1.0) 11/02/16 06:05 AST 19 U/L (15-37) 11/02/16 06:05 ALT 20 U/L (12-78) 11/02/16 06:05 Alkaline Phosphatase 56 U/L (45-117) 11/02/16 06:05 Total Protein 5.8 g/dl (6.4-8.2) L 11/02/16 06:05 Albumin 2.8 g/dl (3.4-5.0) L 11/02/16 06:05 CARDIAC ENZYMES Creatine Kinase 57 IU/L (39-308) 11/02/16 06:05 Troponin I 0.08 ng/ml (0.00-0.05) H D 11/02/16 06:05 Current Medications Generic Name Dose Route Start Last Admin Trade Name Freq PRN Reason Stop Dose Admin Acetaminophen 1,000 mg 11/01/16 10:02 11/02/16 15:21 Tylenol - PO 1,000 mg Q6H PRN Administration FEVER OR PAIN Amlodipine Besylate 10 mg 11/02/16 18:45 11/03/16 09:26 Norvasc - PO 10 mg DAILY [facility]UEL Administration Atorvastatin Calcium 20 mg 11/01/16 22:00 11/02/16 22:53 Lipitor - PO 20 mg HS [facility]UEL Administration Cholecalciferol 5,000 unit 11/02/16 10:00 11/03/16 09:36 Vitamin D3 - PO 5,000 unit DAILY [facility] Administration Clopidogrel Bisulfate 75 mg 11/02/16 10:00 11/03/16 09:36 Plavix - PO 75 mg DAILY [facility] Administration Cyanocobalamin 10 mcg 11/02/16 10:00 Vitamin B12 - PO DAILY [facility] Finasteride 5 mg 11/01/16 22:00 11/02/16 22:53 Proscar - PO 5 mg HS [facility]EL Administration Furosemide 20 mg 11/02/16 14:00 11/03/16 06:52 Lasix Injection - IVPUSH 20 mg BID@0600,1400 [facility] Administration Ceftriaxone Sodium 50 mls @ 100 mls/hr 11/02/16 10:00 11/03/16 09:27 Rocephin 1gm Ivpb (Pre-Docked) IVPB 100 mls/hr DAILY [facility] Administration Azithromycin 250 mg/ Dextrose 250 mls @ 250 mls/hr 11/02/16 10:00 11/03/16 10: 24 IVPB 250 mls/hr DAILY [facility] Administration Insulin Detemir 20 units 11/01/16 22:00 11/02/16 22:53 Levemir Vial SQ 16 units HS [facility] Administration Losartan Potassium 100 mg 11/02/16 10:00 11/03/16 09:27 Cozaar - PO 100 mg DAILY [facility] Administration Oseltamivir Phosphate 75 mg 11/02/16 14:15 11/03/16 09:26 Tamiflu - PO 11/07/16 14:14 75 mg BID [facility] Administration Sitagliptin Phosphate 50 mg 11/01/16 16:30 11/03/16 06:48 Januvia - PO 50 mg BIDAC [facility] Administration Sodium Chloride 1,000 ml 11/01/16 07:17 11/01/16 08:05 Normal Saline - IV 1,000 ml Q20M PRN Administration MAP<65mm Hg OR SBP <90 Home Medications Medication Instructions Recorded Clopidogrel Bisulfate [Plavix -] 75 mg PO DAILY 09/02/12 Finasteride 5 mg PO HS 09/02/12 Cholecalciferol (Vitamin D3) 5,000 unit PO BID 01/10/14 [Vitamin D] Cyanocobalamin [Vitamin B12 -] 10 mcg SL DAILY 01/10/14 Losartan Potassium 100 mg PO DAILY 01/10/14 Sitagliptin Phos/Metformin HCl 1 each PO BID 01/10/14 [Janumet Xr 50-1,000 mg Tablet] Ginkgo Biloba [place] Extract [Ginkgo 30 mg PO DAILY 03/18/16 Biloba] Insulin Glargine,Hum.rec.anlog 15 units SQ HS 03/18/16 [Lantus (10mL VIAL) -] Unobtainable 11/01/16 ECHO: EJF 65%; RVSP:40-50 , mild concentric left ventricular hypertrophy, Mild MR, mild TR, showed normal LV systolic function, no sig valvular abnl, mild PAH EKG: NSR, rate 93 CXR: positive for infiltrate ,positive for pulmonary congestion ASSESSMENT/PLAN: Patient is an 81 yr old male presented to Ed.with SOB, fever and + productive cough. # Pneumonia BL due to Influenza B positive , positive for cough, ordered Influenza A and B, patient is positive for Influenza B, isolation order is placed; droplet isolation , Tamiflu is iniated 75mg po bid .On Rocephin/ Zithromax in ED . tylenol PRN for fever, incentive spirometer; keep o2 > 90% # Acute exacerbation of diastolic CHF ; Patient is seen by covering for [facility] ; ECHo as above , Is and Os ,daily weights, BNP 3263; . Lasix 20mg IV Bid , on Arb continue ,on plavix , on lipitor #Chest pain with h/o CAD with stents, slightly elevated troponin with normal CK level, unlikely CA; trops.0.36-->0.23-->0.08 now -troponin trended down, cont Plavix and Lipitor, will check with the patient whether he was on ASpirin at home or not -plan:stress test once improves from a pulmonary standpoint. # T2DM fingerstick ac and hs with coverage, hold metformin for now , continue 20u levemir #Hx of BPH hematuria WITH PROTEINURIA 2 PLUS :F/U urine culture; ON arb CONTINUE, continue proscar #HTN slightly elevated will continue current regimen DVT Px: SCDs since has hematuria will not give heparin POsitive for Influenza B positive Visit type - Emergency Visit Emergency Visit: Yes ED Registration Date: 11/01/16 Care time: The patient presented to the Emergency Department on the above date and was hospitalized for further evaluation of their emergent condition. - New Patient This patient is new to me today: No - Critical Care Critical Care patient: No
[2016-11-03] MEDS: INSULIN DETEMIR 100 UNITS/ML MDV SQ SCH (22:08)
[2016-11-03] MEDS: FINASTERIDE 5 MG TABLET (FP) PO SCH (22:08)
[2016-11-03] MEDS: ATORVASTATIN CA 20 MG TABLET (FP) PO SCH (22:08)
[2016-11-04] MEDS: FUROSEMIDE 40 MG/4 ML INJECTABLE VIAL IVPUSH SCH ×2 (06:13→13:36)
[2016-11-04] MEDS: sitaGLIPtin PHOSPHATE 50 MG TABLET PO SCH ×2 (06:14→17:30)
[2016-11-04] MEDS: LOSARTAN POTASSIUM 50 MG TABLET (FP) PO SCH (09:38)
[2016-11-04] MEDS: CEFTRIAXONE 50 ML IVPB SCH (09:38)
[2016-11-04] MEDS: OSELTAMIVIR PHOSPHATE 75 MG CAPSULE PO SCH (09:38)
[2016-11-04] MEDS: amLODIPine BESYLATE 10 MG TABLET (FP) PO SCH (09:38)
[2016-11-04] MEDS: CLOPIDOGREL BISULFATE 75 MG TABLET (FP) PO SCH (09:38)
[2016-11-04] MEDS: CHOLECALCIFEROL (VITAMIN D3) 1,000 UNIT TABLET (FP) PO SCH (09:39)
[2016-11-04] MEDS: AZITHROMYCIN IVPB 250 MG in DEXTROSE 5%-WATER - 250 ML IVPB SCH (09:42)
[2016-11-04] MEDS ORDERED: CYANOCOBALAMIN 1,000 MCG TABLET (FP) PO SCH (10:00)
--- NOTE | 2016-11-04 11:34 | PN ---
Progress Note, Physician History of Present Illness: HISTORY OF PRESENT ILLNESS: 81 yo M with hx of HTN, NIDDM, s/p 2 cardiac stents (on Plavix) and cholecystectomy, presents to ED with cough, SOB, and fever x 3 days. Patient's daughter is at bedside and states Tmax was yesterday at 101.6F. Daughter reports that patient was seen at [facility] two days ago and sent home with Claritin and Tylenol for ever. Patient has been taking 1000 mg Tylenol 3 times daily for fever. Daughter also reports that patient has had LLQ pain x 3 months as well as "blood in the urine twice" and has seen "three doctors who said everything is ok, but after I insisted he is scheduled to have an ultrasound on the ." - Current Medication List Current Medications: Active Medications Acetaminophen (Tylenol -) 1,000 mg PO Q6H PRN PRN Reason: FEVER OR PAIN Last Admin: 11/02/16 15:21 Dose: 1,000 mg Amlodipine Besylate (Norvasc -) 10 mg PO DAILY [facility] Last Admin: 11/04/16 09:38 Dose: 10 mg Atorvastatin Calcium (Lipitor -) 20 mg PO HS [facility] Last Admin: 11/03/16 22:08 Dose: 20 mg Cholecalciferol (Vitamin D3 -) 5,000 unit PO DAILY [facility] Last Admin: 11/04/16 09:39 Dose: 5,000 unit Clopidogrel Bisulfate (Plavix -) 75 mg PO DAILY [facility] Last Admin: 11/04/16 09:38 Dose: 75 mg Cyanocobalamin (Vitamin B12 -) 1,000 mcg PO DAILY [facility] Last Admin: 11/04/16 09:38 Dose: 1,000 mcg Finasteride (Proscar -) 5 mg PO HS [facility] Last Admin: 11/03/16 22:08 Dose: 5 mg Furosemide (Lasix Injection -) 20 mg IVPUSH BID@0600,1400 [facility] Last Admin: 11/04/16 06:13 Dose: 20 mg Ceftriaxone Sodium (Rocephin 1gm Ivpb (Pre-Docked)) 50 mls @ 100 mls/hr IVPB DAILY [facility] Last Admin: 11/04/16 09:38 Dose: 100 mls/hr Azithromycin 250 mg/ Dextrose 250 mls @ 250 mls/hr IVPB DAILY [facility] Last Admin: 11/04/16 09:42 Dose: 250 mls/hr Insulin Detemir (Levemir Vial) 20 units SQ HS [facility] Last Admin: 11/03/16 22:08 Dose: 16 units Losartan Potassium (Cozaar -) 100 mg PO DAILY [facility] Last Admin: 11/04/16 09:38 Dose: 100 mg Oseltamivir Phosphate (Tamiflu -) 75 mg PO BID [facility] Stop: 11/07/16 14:14 Last Admin: 11/04/16 09:38 Dose: 75 mg Sitagliptin Phosphate (Januvia -) 50 mg PO BIDAC [facility] Last Admin: 11/04/16 06:14 Dose: 50 mg Sodium Chloride (Normal Saline -) 1,000 ml IV Q20M PRN PRN Reason: MAP<65mm Hg OR SBP <90 Last Admin: 11/01/16 08:05 Dose: 1,000 ml - Objective Vital Signs: Vital Signs Temperature 98 F 11/04/16 10:00 Pulse Rate 75 11/04/16 10:00 Respiratory Rate 18 11/04/16 10:00 Blood Pressure 130/70 11/04/16 10:00 O2 Sat by Pulse Oximetry (%) 97 11/04/16 09:00 Eyes: Yes: WNL, Conjunctiva Clear, EOM Intact HENT: Yes: WNL, Atraumatic, Normocephalic Neck: Yes: WNL, Supple, Trachea Midline Cardiovascular: Yes: WNL, Regular Rate and Rhythm Respiratory: Yes: WNL, Regular, CTA Bilaterally Gastrointestinal: Yes: WNL, Normal Bowel Sounds Genitourinary: Yes: WNL Musculoskeletal: Yes: WNL Extremities: Yes: WNL Edema: No Integumentary: Yes: WNL Neurological: Yes: WNL, Alert, Oriented ...Motor Strength: WNL Psychiatric: Yes: WNL Labs: CBC, BMP 11/02/16 06:05 11/02/16 06:05 INR, PTT INR 1.26 (0.82-1.09) H 11/02/16 06:05 Problem List - Problems (1) New onset of congestive heart failure Code(s): I50.9 - HEART FAILURE, UNSPECIFIED (2) CVA (cerebral vascular accident) Code(s): I63.9 - CEREBRAL INFARCTION, UNSPECIFIED (3) Cholecystitis Code(s): K81.9 - CHOLECYSTITIS, UNSPECIFIED (4) Delirium Code(s): R41.0 - DISORIENTATION, UNSPECIFIED (5) Diabetes Code(s): E11.9 - TYPE 2 DIABETES MELLITUS WITHOUT COMPLICATIONS (6) Fever in adult Code(s): R50.9 - FEVER, UNSPECIFIED (7) HTN (hypertension) Code(s): I10 - ESSENTIAL (PRIMARY) HYPERTENSION (9) Hyperlipidemia Code(s): E78.5 - HYPERLIPIDEMIA, UNSPECIFIED (10) Leukocytosis Code(s): D72.829 - ELEVATED WHITE BLOOD CELL COUNT, UNSPECIFIED (11) S/P cholecystectomy Code(s): Z90.49 - ACQUIRED ABSENCE OF OTHER SPECIFIED PARTS OF DIGESTIVE TRACT (12) Type II diabetes mellitus Code(s): E11.9 - TYPE 2 DIABETES MELLITUS WITHOUT COMPLICATIONS Assessment/Plan 81 year old man h/o HTN, DMII, CAD with 2 prior stents admitted with sob, chest discomfort, cough, and fever. SOB-multifactorial, found to have influenza B positive yesterday, mild acute on chronic diastolic CHF, possible PNA, pulm HTN -improving -echo showed normal LV systolic function, no sig valvular abnl, mild PAH -cont current diuretics -I/Os not recorded, would monitor strict I/Os -receiving Abx for possible PNA -now on tamiflu for influenza Chest pain-h/o CAD with stents, slightly elevated troponin with normal CK level , unlikely type I MO -troponin trended down -cont Plavix and Lipitor -clarify if he was on ASA as it is not currently ordered -plan for ischemic work up with stress test once improves from a pulmonary standpoint HTN-above goal at times -cont current medical regimen for now HLD -cont statin
--- NOTE | 2016-11-04 13:56 | DS ---
Physical Exam: SUBJECTIVE: Patient seen and examined patient resting in bed NAD. no acute events. afebrile and hemodynamically stable. Feels well. Has mild cough forductive of clear flem. Denies sob or chest pain. has been ambulating w/o difficulty. Denies h/a, f/c, n/v, abd pain, diarrhea, dysuria. OBJECTIVE: Vital Signs Period Temp Pulse Resp BP Sys/Howard Pulse Ox Last 24 Hr 97.7 F-98.8 F 66-75 18-18 119-149/51-87 95-97 PHYSICAL EXAM GENERAL: The patient is awake, alert, and fully oriented, in no acute distress. HEAD: Normal with no signs of trauma. EYES: PERRL, extraocular movements intact, sclera anicteric, conjunctiva clear. ENT: oropharynx clear without exudates, moist mucous membranes. NECK: supple. LUNGS: Breath sounds equal, clear to auscultation bilaterally, minimal bibasilar chrackles, HEART: Regular rate and rhythm, S1, S2 ABDOMEN: Soft, nontender, nondistended, normoactive bowel sounds EXTREMITIES: 2+ pulses, warm, well-perfused, no edema. NEUROLOGICAL: Cranial nerves II through XII grossly intact. Normal speech, gait not observed. PSYCH: Normal mood, normal affect. SKIN: Warm, dry LABS Laboratory Results - last 24 hr 11/03/16 11/03/16 11/03/16 16:42 16:44 22:06 POC Glucometer 321 222 246 11/04/16 06:06 POC Glucometer 107 HOSPITAL COURSE: Date of Admission:11/01/16 This is an 81 yo M with PMH of HTN, NIDDM, s/p 2 cardiac stents (on Plavix) and cholecystectomy, presents to ED with cough, SOB, and fever x 3 days with Tmax 101.6F. Per daughter also patient has had LLQ pain x 3 months as well as " blood in the urine twice" and has seen "three doctors who said everything is ok , but after I insisted he is scheduled to have an ultrasound on the ." Patient found to be positive for Influenza B and treated with tamiflu. He also found to have b/l pleural effusions and treated for CAP with IV abx x 3 days. Evaluated by cardiology for possible chf. Plan to do stress test outpatient. Started on norvasc 10 d, lasix 20 bid, lipitor 20 hs and asa 81 d. Instructed to finish 5 days course of BOD tamiflu at home. Date of Discharge: 11/04/16 Minutes to complete discharge: 56 (na) Discharge Summary Reason For Visit: NEW ONSET OF CONGESTIVE HEART FAILURE Current Active Problems Community acquired pneumonia (Acute) Influenza (Acute) New onset of congestive heart failure (Acute) Condition: Good - Instructions Diet, Activity, Other Instructions: You were in the hospital because of influenza infection. It affected both your lungs and your heart. you were seen by a human factors ergonomist. For the lungs: please take Tamiflu; one pill tonight and then two timer per day for 2 days. When you finish Tamiflu, start taking Aspirin 81 mg daily every day. See your primary doctor in 1 week. For the heart: see a human factors ergonomist in 2 weeks to do a heart stress test. Medication changes: Stop taking Zocar Start taking Lipitor 20 mg before sleep, norvasc 10 mg daily, lasix 20 mg twice a day Return to hospital if symptoms worsen [place] en el hospital debido a ellen infeccin de influenza. Afect tanto a los pulmones laverne al corazn. Usted fue visto por un cardilogo. Para los pulmones: por favor tome Tamiflu; Ellen pastilla esta noche y luego dos temporizador por da asaf 2 luu. Cuando termine Tamiflu, comience a ileana Aspirina 81 mg al da todos los luu. Consulte a woods mdico de cabecera en ellen semana. Para el corazn: concepcion a un cardilogo en 2 semanas para hacer ellen prueba de estr s cardaco. Cambios en la medicacin: Deje de ileana Zocar Comience a ileana Lipitor 20 mg antes de dormir, norvasc 10 mg al da, lasix 20 mg dos veces al da [facility]reso al hospital si los sntomas empeoran Referrals: Micheal Myers MD [Staff Physician] - 2 Weeks Dmitriy Sarmiento MD [Primary Care Provider] - 1 Week Disposition: HOME - Home Medications Comprehensive Discharge Medication List: Ambulatory Orders Clopidogrel Bisulfate [Plavix -] 75 mg PO DAILY 09/02/12 Finasteride 5 mg PO HS 09/02/12 Cholecalciferol (Vitamin D3) [Vitamin D] 5,000 unit PO BID 01/10/14 Cyanocobalamin [Vitamin B12 -] 10 mcg SL DAILY 01/10/14 Losartan Potassium 100 mg PO DAILY 01/10/14 Sitagliptin Phos/Metformin HCl [Janumet Xr 50-1,000 mg Tablet] 1 each PO BID Ginkgo Biloba [place] Extract [Ginkgo Biloba] 30 mg PO DAILY 03/18/16 Insulin Glargine,Hum.rec.anlog [Lantus (10mL VIAL) -] 15 units SQ HS 03/18/16 Amlodipine Besylate [Norvasc -] 10 mg PO DAILY #30 tablet 11/04/16 Atorvastatin Ca [Lipitor] 20 mg PO HS #30 tablet 11/04/16 Furosemide [Lasix -] 20 mg PO BID #60 tablet 11/04/16 Oseltamivir Phosphate [Tamiflu -] 75 mg PO BID #5 tab 11/04/16 Problem List - Problems (1) Community acquired pneumonia Code(s): J18.9 - PNEUMONIA, UNSPECIFIED ORGANISM (2) Influenza Code(s): J11.1 - FLU DUE TO UNIDENTIFIED INFLUENZA VIRUS W OTH RESP MANIFEST (3) New onset of congestive heart failure Code(s): I50.9 - HEART FAILURE, UNSPECIFIED (4) Diabetes Code(s): E11.9 - TYPE 2 DIABETES MELLITUS WITHOUT COMPLICATIONS (5) Fever in adult Code(s): R50.9 - FEVER, UNSPECIFIED (6) HTN (hypertension) Code(s): I10 - ESSENTIAL (PRIMARY) HYPERTENSION (7) Hyperlipidemia Code(s): E78.5 - HYPERLIPIDEMIA, UNSPECIFIED (8) Type II diabetes mellitus Code(s): E11.9 - TYPE 2 DIABETES MELLITUS WITHOUT COMPLICATIONS This patient is new to me today: Yes Date on this admission: 11/04/16 Emergency Visit: Yes ED Registration Date: 11/01/16 Care time: The patient presented to the Emergency Department on the above date and was hospitalized for further evaluation of their emergent condition. Critical Care patient: No - Discharge Referral Referred to [facility] Med P.C.: No
[2016-11-04 15:48] VITALS: BP 119/50; PULSE 62; TEMP 99.2
--- NOTE | 2016-11-04 17:09 | PN ---
Teaching Attending Note Name of Resident: Chloe Casillas ATTENDING PHYSICIAN STATEMENT I saw and evaluated the patient. I reviewed the resident's note and discussed the case with the resident. I agree with the resident's findings and plan as documented. Vital Signs Temperature 99.2 F 11/04/16 15:00 Pulse Rate 62 11/04/16 15:00 Respiratory Rate 18 11/04/16 15:00 Blood Pressure 119/50 11/04/16 15:00 O2 Sat by Pulse Oximetry (%) 97 11/04/16 09:00 CBCD WBC 8.1 K/mm3 (4.0-10.0) 11/02/16 06:05 RBC 3.73 M/mm3 (4.00-5.60) L 11/02/16 06:05 Hgb 11.4 GM/dL (11.7-16.9) L 11/02/16 06:05 Hct 34.1 % (35.4-49) L 11/02/16 06:05 MCV 91.2 fl (80-96) 11/02/16 06:05 MCHC 33.6 g/dl (32.0-35.9) 11/02/16 06:05 RDW 13.6 % (11.9-15.9) 11/02/16 06:05 Plt Count 168 K/MM3 (134-434) 11/02/16 06:05 MPV 9.2 fl (7.5-11.1) 11/02/16 06:05 CMP Sodium 140 mmol/L (136-145) 11/02/16 06:05 Potassium 4.2 mmol/L (3.5-5.1) 11/02/16 06:05 Chloride 102 mmol/L (98-107) 11/02/16 06:05 Carbon Dioxide 32 mmol/L (21-32) D 11/02/16 06:05 Anion Gap 6 (8-16) L 11/02/16 06:05 BUN 12 mg/dL (7-18) D 11/02/16 06:05 Creatinine 0.7 mg/dL (0.7-1.3) 11/02/16 06:05 Creat Clearance w eGFR > 60 (>60) 11/02/16 06:05 Random Glucose 80 mg/dL (74-106) D 11/02/16 06:05 Calcium 8.7 mg/dL (8.5-10.1) 11/02/16 06:05 Total Bilirubin 0.5 mg/dL (0.2-1.0) 11/02/16 06:05 AST 19 U/L (15-37) 11/02/16 06:05 ALT 20 U/L (12-78) 11/02/16 06:05 Alkaline Phosphatase 56 U/L (45-117) 11/02/16 06:05 Total Protein 5.8 g/dl (6.4-8.2) L 11/02/16 06:05 Albumin 2.8 g/dl (3.4-5.0) L 11/02/16 06:05 CARDIAC ENZYMES Creatine Kinase 57 IU/L (39-308) 11/02/16 06:05 Troponin I 0.08 ng/ml (0.00-0.05) H D 11/02/16 06:05 Current Medications Generic Name Dose Route Start Last Admin Trade Name Freq PRN Reason Stop Dose Admin Acetaminophen 1,000 mg 11/01/16 10:02 11/02/16 15:21 Tylenol - PO 1,000 mg Q6H PRN Administration FEVER OR PAIN Amlodipine Besylate 10 mg 11/02/16 18:45 11/04/16 09:38 Norvasc - PO 10 mg DAILY [facility] Administration Atorvastatin Calcium 20 mg 11/01/16 22:00 11/03/16 22:08 Lipitor - PO 20 mg HS [facility] Administration Cholecalciferol 5,000 unit 11/02/16 10:00 11/04/16 09:39 Vitamin D3 - PO 5,000 unit DAILY [facility] Administration Clopidogrel Bisulfate 75 mg 11/02/16 10:00 11/04/16 09:38 Plavix - PO 75 mg DAILY [facility] Administration Cyanocobalamin 1,000 mcg 11/04/16 10:00 11/04/16 09:38 Vitamin B12 - PO 1,000 mcg DAILY [facility] Administration Finasteride 5 mg 11/01/16 22:00 11/03/16 22:08 Proscar - PO 5 mg HS [facility] Administration Furosemide 20 mg 11/02/16 14:00 11/04/16 13:36 Lasix Injection - IVPUSH 20 mg BID@0600,1400 [facility] Administration Ceftriaxone Sodium 50 mls @ 100 mls/hr 11/02/16 10:00 11/04/16 09:38 Rocephin 1gm Ivpb (Pre-Docked) IVPB 100 mls/hr DAILY [facility] Administration Azithromycin 250 mg/ Dextrose 250 mls @ 250 mls/hr 11/02/16 10:00 11/04/16 09: 42 IVPB 250 mls/hr DAILY [facility] Administration Insulin Detemir 20 units 11/01/16 22:00 11/03/16 22:08 Levemir Vial SQ 16 units HS [facility] Administration Losartan Potassium 100 mg 11/02/16 10:00 11/04/16 09:38 Cozaar - PO 100 mg DAILY [facility] Administration Oseltamivir Phosphate 75 mg 11/02/16 14:15 11/04/16 09:38 Tamiflu - PO 11/07/16 14:14 75 mg BID [facility] Administration Sitagliptin Phosphate 50 mg 11/01/16 16:30 11/04/16 06:14 Januvia - PO 50 mg BIDAC [facility] Administration Sodium Chloride 1,000 ml 11/01/16 07:17 11/01/16 08:05 Normal Saline - IV 1,000 ml Q20M PRN Administration MAP<65mm Hg OR SBP <90 Home Medications Medication Instructions Recorded Clopidogrel Bisulfate [Plavix -] 75 mg PO DAILY 09/02/12 Finasteride 5 mg PO HS 09/02/12 Cholecalciferol (Vitamin D3) 5,000 unit PO BID 01/10/14 [Vitamin D] Cyanocobalamin [Vitamin B12 -] 10 mcg SL DAILY 01/10/14 Losartan Potassium 100 mg PO DAILY 01/10/14 Sitagliptin Phos/Metformin HCl 1 each PO BID 01/10/14 [Janumet Xr 50-1,000 mg Tablet] Ginkgo Biloba [place] Extract [Ginkgo 30 mg PO DAILY 03/18/16 Biloba] Insulin Glargine,Hum.rec.anlog 15 units SQ HS 03/18/16 [Lantus (10mL VIAL) -] Amlodipine Besylate [Norvasc -] 10 mg PO DAILY #30 tablet 11/04/16 Aspirin [ASA -] 81 mg PO DAILY #30 tab.chew 11/04/16 Atorvastatin Ca [Lipitor] 20 mg PO HS #30 tablet 11/04/16 Furosemide [Lasix -] 20 mg PO BID #60 tablet 11/04/16 Oseltamivir Phosphate [Tamiflu -] 75 mg PO BID #5 tab 11/04/16 ECHO: EJF 65%; RVSP:40-50 , mild concentric left ventricular hypertrophy, Mild MR, mild TR, showed normal LV systolic function, no sig valvular abnl, mild PAH EKG: NSR, rate 93 CXR: positive for infiltrate ,positive for pulmonary congestion ASSESSMENT AND PLAN: Patient is an 81 yr old male presented to Ed.with SOB, fever and + productive cough. # Pneumonia BL due to Influenza B positive , positive for cough, ordered Influenza A and B, patient is positive for Influenza B, isolation order is placed; droplet isolation , Tamiflu is iniated 75mg po bid .On Rocephin/ Zithromax in ED . tylenol PRN for fever, incentive spirometer; keep o2 > 90% # Acute exacerbation of diastolic CHF ; Patient is seen by covering for [place] ; ECHo as above , Is and Os ,daily weights, BNP 3263; . Lasix 20mg IV Bid , on Arb continue ,on plavix , on lipitor #Chest pain with h/o CAD with stents, slightly elevated troponin with normal CK level, unlikely MO; trops.0.36-->0.23-->0.08 now -troponin trended down, cont Plavix and Lipitor, will check with the patient whether he was on ASpirin at home or not -plan:stress test once improves from a pulmonary standpoint. # T2DM fingerstick ac and hs with coverage, hold metformin for now , continue 20u levemir #Hx of BPH hematuria WITH PROTEINURIA 2 PLUS :F/U urine culture; ON arb CONTINUE, continue proscar #HTN slightly elevated will continue current regimen DVT Px: SCDs since has hematuria will not give heparin POsitive for Influenza B positive
== END 2016-11-04 19:02 | disposition home or self-care (01) | DRG 291 ==
LOC: JER 06:42 → JERBED 10:20 → J4W 16:33
PROVIDERS: ADMIT Internal Medicine; ATTEND Internal Medicine
DX: I11.0 Hypertensive heart disease with heart failure (principal); J10.08 Influenza due to other identified influenza virus with other specified pneumonia; I50.33 Acute on chronic diastolic (congestive) heart failure; R07.9 Chest pain, unspecified; I25.10 Atherosclerotic heart disease of native coronary artery without angina pectoris; Z98.61 Coronary angioplasty status; N40.0 Benign prostatic hyperplasia without lower urinary tract symptoms; E11.9 Type 2 diabetes mellitus without complications
CPT/HCPCS: 36415; 71010-TC; 80053; 81003; 81015; 82550; 82803; 83605; 83880; 84484; 85025; 85610; 85730; 86850; 86900; 86901; 87040; 87086; 87804; 93005; 93010; 93306-TC; 94010; 99284-25

== ENCOUNTER 2017-08-06 12:30 | Emergency (ER) | payer OTHER ==
[2017-08-06 12:36] VITALS: BP 157/72; PULSE 79; TEMP 98.7; BMI 31.6
--- NOTE | 2017-08-06 13:52 | PDOC ---
History of Present Illness - General Chief Complaint: Injury Stated Complaint: FELL Time Seen by Provider: 08/06/17 13:04 History Source: Patient Exam Limitations: No Limitations - History of Present Illness Initial Comments: 08/06/17 13:46 Was walking 2 days ago when he tripped falling forward and landing on the side of his arm and elbow. Has continued complaints of right chest wall pain, rib tenderness, and states is difficult to take a deep inspiration secondary to pain with this movement. Has had rib fractures in the past and was concerned may have reinjured. Patient denies shortness of breath, cough, fevers, there was no head injury involved and no other extremity injury. 08/06/17 18:02 Severity: reports: mild, moderate Pain Location: reports: chest Method of Injury: Yes: fall Modifying Factors: improves with: cold therapy, pain medication Loss of Consciousness: no loss of consciousness Associated Symptoms (Fall): denies symptoms Past History - Travel Traveled outside of the country in the last 30 days: No Close contact w/someone who was outside of country & ill: No - Past Medical History Allergies/Adverse Reactions: Allergies Allergy/AdvReac Type Severity Reaction Status Date / Time morphine AdvReac Mild hallucinati Verified 08/06/17 12:36 on oxycodone AdvReac Mild hallucinati Verified 08/06/17 12:36 ons Home Medications: Ambulatory Orders Clopidogrel Bisulfate [Plavix -] 75 mg PO DAILY 09/02/12 Finasteride 5 mg PO HS 09/02/12 Cholecalciferol (Vitamin D3) [Vitamin D] 5,000 unit PO BID 01/10/14 Cyanocobalamin [Vitamin B12 -] 10 mcg SL DAILY 01/10/14 Losartan Potassium 100 mg PO DAILY 01/10/14 Sitagliptin Phos/Metformin HCl [Janumet Xr 50-1,000 mg Tablet] 1 each PO BID Ginkgo Biloba [place] Extract [Ginkgo Biloba] 30 mg PO DAILY 03/18/16 Insulin Glargine,Hum.rec.anlog [Lantus (10mL VIAL) -] 15 units SQ HS 03/18/16 Amlodipine Besylate [Norvasc -] 10 mg PO DAILY #30 tablet 11/04/16 Aspirin [ASA -] 81 mg PO DAILY #30 tab.chew 11/04/16 Atorvastatin Ca [Lipitor] 20 mg PO HS #30 tablet 11/04/16 Furosemide [Lasix -] 20 mg PO BID #60 tablet 11/04/16 Oseltamivir Phosphate [Tamiflu -] 75 mg PO BID #5 tab 11/04/16 Anemia: No Asthma: No Cancer: No (ANGIOPLASTY WITH STENT) Cardiac Disorders: Yes (CAD) CVA: Yes (2011 - NO RESIDUAL) COPD: No CHF: No DVT: No Dementia: No Diabetes: Yes (IDDM) GI Disorders: No Disorders: Yes (BPH) HTN: Yes Hypercholesterolemia: No Liver Disease: No Seizures: No Thyroid Disease: No - Surgical History Abdominal Surgery: Yes Appendectomy: No Cardiac Surgery: Yes (ANGIOPLASTY WITH STENT) Cholecystectomy: Yes (GB SX) Lung Surgery: No Neurologic Surgery: No Orthopedic Surgery: Yes (RIGHT KNEE REPLACEMENT) - Immunization History Immunization Up to Date: Yes - Suicide/Smoking/Psychosocial Hx Smoking Status: No Smoking History: Never smoked Have you smoked in the past 12 months: No Number of Cigarettes Smoked Daily: 1,940 Hx Alcohol Use: No Drug/Substance Use Hx: No Substance Use Type: None Hx Substance Use Treatment: No Trauma Specific PMHX - Complaint Specific PMHX Arthritis: Yes Back Injury: No Neck Injury: No Hx Sacro Iliac Joint Dysfunction: No Review of Systems - Review of Systems Able to Perform ROS?: Yes Is the patient limited Albanian proficient: Yes Constitutional: Yes: Symptoms Reported, See HPI, Malaise Respiratory: Yes: Symptoms reported, See HPI, Cough. No: Shortness of Breath ABD/GI: No: Symptoms Reported Musculoskeletal: Yes: Symptoms Reported, See HPI, Muscle Pain Neurological: Yes: See HPI. No: Symptoms reported, Headache All Other Systems: Reviewed and Negative *Physical Exam - Vital Signs Last Vital Signs Temp Pulse Resp BP Pulse Ox 98.7 F 79 20 157/72 96 08/06/17 12:33 08/06/17 12:33 08/06/17 12:33 08/06/17 12:33 08/06/17 12:33 - Physical Exam General Appearance: Yes: Nourished, Appropriately Dressed, Apparent Distress, Mild Distress HEENT: positive: BUSHRA, Normal ENT Inspection, TMs Normal, Pharynx Normal, Nasal Congestion. negative: Pharyngeal Erythema Neck: positive: Supple. negative: Tender Respiratory/Chest: positive: Lungs Clear, Normal Breath Sounds (but has pleuritic chest pain, worse on the right side than the left), Other (has palpable tenderness along the lower rib borders primarily 02/26/2010, without crepitus or step-offs. No bruising, swelling noted). negative: Wheezing Gastrointestinal/Abdominal: positive: Tender (mild tenderness under right rib border but no foot swelling firmness ecchymoses or rebound. Pain is primarily with movement to right arm), Soft Musculoskeletal: positive: Normal Inspection. negative: CVA Tenderness Extremity: positive: Normal Capillary Refill, Normal Inspection, Normal Range of Motion Integumentary: positive: Normal Color, Dry, Warm Neurologic: positive: cashier ticket selling II-XII NML intact, Fully Oriented, Alert, Normal Mood/ Affect, Normal Response, Motor Strength 11/22 ED Treatment Course - RADIOLOGY Radiology Studies Ordered: Category Date Time Status RIBS RIGHT SIDE [RAD] Stat Radiology 08/06/17 13:05 Taken Progress Note - Progress Note Progress Note: XRay negative for fractures or dislocation, no pneumo. Old sixth rib fracture noted. No free air under diaphragm *DC/Admit/Observation/Transfer Diagnosis at time of Disposition: Contusion, chest wall Qualifiers: Encounter type: initial encounter Laterality: right Qualified Code(s): S20.211A - Contusion of right front wall of thorax, initial encounter - Discharge Dispostion Disposition: HOME Condition at time of disposition: Stable Admit: No - Referrals Referrals: Janette Waldrop MD [Primary Care Provider] - - Patient Instructions Printed Discharge Instructions: DI for Rib Contusion Additional Instructions: Rest, ice to area on and off for 15 minutes 4-6 times a day Avoid heavy lifting or exercise until pain and swelling is resolved or until further directed Followup with Private DR in one to 2 days if not improving, if significantly improved may wait one week for followup with orthopedist May use ibuprofen 2-200 mg tablets every 6 hours as needed for pain - Post Discharge Activity
== END 2017-08-06 14:01 | disposition home or self-care (01) ==
LOC: JERFT 12:30
DX: S20.211A Contusion of right front wall of thorax, initial encounter (principal); W01.0XXA Fall on same level from slipping, tripping and stumbling without subsequent striking against object, initial encounter; Y93.89 Activity, other specified; Y92.89 Other specified places as the place of occurrence of the external cause; Y99.9 Unspecified external cause status; I25.10 Atherosclerotic heart disease of native coronary artery without angina pectoris; I10 Essential (primary) hypertension; Z95.5 Presence of coronary angioplasty implant and graft; Z86.73 Personal history of transient ischemic attack (TIA), and cerebral infarction without residual deficits; N40.0 Benign prostatic hyperplasia without lower urinary tract symptoms
CPT/HCPCS: 71101-TC-RT; 99281-25